=== PATIENT | female | born 1995 | race Caucasian/White ===

== ENCOUNTER 2019-06-06 10:47 | Inpatient (IN) | payer MEDICAID ==
[2019-06-06] VITALS (9 sets, daily range): BP systolic 105–134; BP diastolic 69–79
[~2019-06-06] VITALS: Ht 154.9 cm; Wt 69.4 kg
--- NOTE | 2019-06-06 10:42 | NUR ---
YURIY CARRIZALES presented to unit from Home, accompanied by Signficant Other, with c/o LEAKING. YURIY CARRIZALES weighed, gowned, voided, and to bed. EFHM and TOCO applied, VS taken. YURIY CARRIZALES oriented to bed controls, call light, TV, heat, and A/C controls.
--- NOTE | 2019-06-06 10:50 | NUR ---
Nitrazine inconclusive. Fluid visible on the perineum. SVE 3/50%.
--- NOTE | 2019-06-06 10:55 | NUR ---
Dr. العلي updated on patient's status. New orders received.
[2019-06-06] MEDS ORDERED: LACTATED RINGERS 1,000 ML IV PRN (11:18)
[2019-06-06] MEDS ORDERED: CITRIC ACID/SOB CIT (BICITRA) 30 ML UDC PO ONE (11:30)
[2019-06-06] MEDS ORDERED: METOCLOPRAMIDE INJ 10 MG/2 ML (REGLAN) IV ONE (11:30)
[2019-06-06] MEDS ORDERED: CATHETER FLUSH 10 ML SYR IV PRN (11:30)
[2019-06-06] MEDS ORDERED: FAMOTIDINE 20MG/2ML IV (PEPCID) IV ONE (11:30)
[2019-06-06 11:36] LABS: BASOPHILS # (AUTO) 0.1 10^3/uL (0.0-0.1); BASOPHILS % (AUTO) 1 % (0-10); EOSINOPHILS % (AUTO) 0 % (0-10); HEMATOCRIT 30 % (35-52); HEMOGLOBIN 9.6 G/DL (11.5-16.0); LYMPHOCYTES # (AUTO) 1.9 X 10^3 (1.0-4.0); LYMPHOCYTES % (AUTO) 18 % (12-44); MEAN CORPUSCULAR HEMOGLOBIN 23 PG (25-34); MEAN CORPUSCULAR HGB CONC 32 G/DL (32-36); MEAN CORPUSCULAR VOLUME 73 FL (80-99); MEAN PLATELET VOLUME 10.6 FL (7.4-10.4); MONOCYTES % (AUTO) 9 % (0-12); NEUTROPHILS # (AUTO) 7.9 X 10^3 (1.8-7.8); NEUTROPHILS % (AUTO) 73 % (42-75); PLATELET COUNT 244 10^3/uL (130-400); RED CELL DISTRIBUTION WIDTH 14.1 % (10.0-14.5); WHITE BLOOD COUNT 10.9 10^3/uL (4.3-11.0)
[2019-06-06] MEDS ORDERED: ONDANSETRON 4 MG/2 ML (SDV) Z0FRAN ONE (11:50)
[2019-06-06] MEDS ORDERED: fentaNYL INJECTION 100 MCG/2 ML AMP ONE (11:50)
[2019-06-06] MEDS ORDERED: KETOROLAC 30 MG/ML VIAL ONE (11:50)
[2019-06-06] MEDS ORDERED: OXYTOCIN/NORMAL SALINE 1,000 ML IV ONE (11:51)
--- NOTE | 2019-06-06 11:55 | History & Physical-OB ---
OB - Chief Complaint & HPI Date/Time Date of Admission: Date of Admission: 06/06/2019 Date seen by a Provider: Jun 06, 2019 Time Seen by a Provider: 11:45 Chief Complaint/History OB-Reason for Admission/Chief: Rupture of Membranes Hx : 2 Hx Para: 1 Expected Date of Delivery: Jun 28, 2019 Gestational Age in Weeks: 36 Gestational Age in Days: 6 Indication for : malpresentation Admission Nurse Assessment Rev: Yes History of Labs O pos Antibody neg RI RPR NR HBsAg NR HIV NR GC pos chla(ANA ROSA neg - 12/17) GBS unknown Allergies and Home Medications Allergies Coded Allergies: No Known Drug Allergies (Unverified , 06/06/19) Patient Home Medication List Home Medication List Reviewed: Yes OB - History Hx of Present Care: Yes Ultrasounds: Normal mid trimester US Obstetrical Complications: None Medical Complications: None Other Concerns: complete breech presentation Patient Past Medical History n/a OB - Admission Exam Physical Exam HEENT: NCAT Heart: Rhythm Normal Lungs: Clear Abdomen: Gravid Extremities: Normal Reflexes: Normal Cervical Dilatation: 3cm Effacement: 75% Station: -1 Membranes: Ruptured Amniotic Fluid: Clear Heart Rate: 140's Accelerations: Accelerations Present Decelerations: No Decelerations Short Term Variability: Present Director Digital Marketing Variability: Average (6-25) Contractions on Admission: 6-10 Minutes Apart Intensity: Moderate Labs Laboratory Tests Test 06/06/19 11:26 Range/Units White Blood Count 10.9 4.3-11.0 10^3/uL Red Blood Count 4.12 L 4.35-5.85 10^6/uL Hemoglobin 9.6 L 11.5-16.0 G/DL Hematocrit 30 L 35-52 % Mean Corpuscular Volume 73 L 80-99 FL Mean Corpuscular Hemoglobin 23 L 25-34 PG Mean Corpuscular Hemoglobin Concent 32 32-36 G/DL Red Cell Distribution Width 14.1 10.0-14.5 % Platelet Count 244 130-400 10^3/uL Mean Platelet Volume 10.6 H 7.4-10.4 FL Neutrophils (%) (Auto) 73 42-75 % Lymphocytes (%) (Auto) 18 12-44 % Monocytes (%) (Auto) 9 0-12 % Eosinophils (%) (Auto) 0 0-10 % Basophils (%) (Auto) 1 0-10 % Neutrophils # (Auto) 7.9 H 1.8-7.8 X 10^3 Lymphocytes # (Auto) 1.9 1.0-4.0 X 10^3 Monocytes # (Auto) 1.0 0.0-1.0 X 10^3 Eosinophils # (Auto) 0.0 0.0-0.3 10^3/uL Basophils # (Auto) 0.1 0.0-0.1 10^3/uL OB - Assessment/Plan/Diagnosis Assessment Assessment: section Admission Dx 23 yo @ 36.6 Premature ROM Complete breech presentation GBS unknown Admission Status: Inpatient Order (span 2 midnights) Reason for Inpatient Admission: SROM at 36 weeks Breech presentation Primary Plan Plan: Section RAFAEL OSPINA DO Jun 06, 2019 11:55
[2019-06-06] MEDS ORDERED: ceFAZolin 2 GM/50 ML NS 50 ML IV ONE (12:00)
[2019-06-06] MEDS ORDERED: OXYTOCIN/NORMAL SALINE 500 ML IV SCH (12:04)
--- NOTE | 2019-06-06 12:08 | Discharge Inst-Women's Service ---
Discharge Inst-Women's Serv Depart Medication/Instructions New, Converted or Re-Newed RX: RX on Chart Final Diagnosis POD 2 PLTCS Problems Reviewed?: Yes Consults/Follow Up Additional Follow Up: Yes Orders/Referrals Dr. العلي in 7-[address] Fernández in 6 weeks Activity Activity: Activity as Tolerated Driving Instructions: No Driving for 1 Week NO SMOKING: NO SMOKING Nothing Inside Vagina: No Douching, No [place], No Tampons Diet Discharge Diet: No Restrictions Symptoms to Report to : Bleeding Excessive, Pain Increased, Fever Over 101 Degrees F, Vaginal Bleeding Increase, Questions/Concerns For Any Problems or Questions: Contact Your Physician Skin/Wound Care Infection Signs and Symptoms: Increased Redness, Foul Odor of Wound, Increased Drainage, Skin Itchy or Has a Rash, Increased Swelling, Temperature Above 101 F Operative Area Clean and Dry: Keep Incision Clean/Dry Stitches/[place]/Dermabond: Dermabond, Care of Stitches Bathing Instructions: RAFAEL Rasmussen DO Jun 06, 2019 12:07
[2019-06-06] MEDS ORDERED: IBUP-844 PO (12:09)
[2019-06-06] MEDS ORDERED: DOCU100C37 PO (12:09)
[2019-06-06] MEDS ORDERED: ACHD5005 PO (12:09)
[2019-06-06] MEDS ORDERED: MEASLES,MUMPS,RUBELLA 1 EA INJ SC SCH (12:15)
[2019-06-06] MEDS ORDERED: TETANUS,DIPTH,PERTUSS P/F (BOOSTRIX) 0.5 ML VIAL IM SCH (12:15)
[2019-06-06] MEDS ORDERED: ONDANSETRON 4 MG/2 ML (SDV) Z0FRAN IVP PRN (12:15)
[2019-06-06] MEDS ORDERED: BISACODYL 10 MG SUPP (DULCOLAX) PR PRN (12:15)
[2019-06-06] MEDS ORDERED: PHENYLEPHRINE 100 MCG/ML 10 ML (ANESTHESIA) SYR ONE (12:38)
[2019-06-06] MEDS ORDERED: BUPIVACAINE 0.25% 30 ML (SENSORCAINE) VIAL ONE (12:39)
[2019-06-06] MEDS: KETOROLAC 30 MG/ML VIAL IV SCH ×2 (12:50→18:35)
[2019-06-06] MEDS ORDERED: CATHETER FLUSH 10 ML SYR IV SCH (14:00)
--- NOTE | 2019-06-06 14:00 | NUR ---
Report from Roula Chapa RN. Care of patient assumed. Addendum: 06/06/19 at 2050 by JEANETH SAMUELS RN Fundus firm U/2 with small rubra lochia noted. No clots. Pericare completed and clean pads placed.
--- NOTE | 2019-06-06 14:06 | OPERATIVE REPORT ---
DATE OF SERVICE: 06/06/2019 PREOPERATIVE DIAGNOSES: 1. A 23-year-old G2, P1 at 36 weeks and 6 days gestation. 2. Premature rupture of membranes. 3. Complete breech presentation. POSTOPERATIVE DIAGNOSES: 1. A 23-year-old G2, P1 at 36 weeks and 6 days gestation. 2. Premature rupture of membranes. 3. Complete breech presentation. PROCEDURE: Primary low transverse section. SURGEON: Ramiro Ospina DO ANESTHESIA: Spinal. ESTIMATED BLOOD LOSS: 400 mL. URINE OUTPUT: 150 mL of clear at the end of the procedure. FLUIDS: 1000 mL of lactated Ringer solution. FINDINGS: A live female infant weighing 6 pounds 13 ounces, Apgars of 7 and 8. Grossly normal appearing uterus, bilateral fallopian tubes and ovaries. SPECIMEN SENT: Placenta. INDICATION FOR PROCEDURE: This 23-year-old female was a patient, who had previously been seen in my office for the finding of malpresentation approximately 34 weeks, but here in the office, I confirmed that she was in a complete breech presentation. I discussed with the patient the possibility of external cephalic version versus primary . The patient did not want to discuss external cephalic version and wished to plan for primary as position did not change. Risks of the procedure was reviewed with the patient in the office including risk of bleeding, infection, damage to surrounding structures including, but not limited to bowel, bladder, ureter, kidneys, possible postoperative complications, possible need for blood transfusion, risk from anesthesia and even . After everything was discussed with the patient in detail, she was scheduled on the , which would have been 39 weeks; however, she presented today with spontaneous rupture of membranes at 36 and 6 and we discussed today due to persistent malpresentation. Risks again were briefly reviewed and consent was obtained and the patient was taken to the operating room. OPERATIVE REPORT IN DETAIL: Once in the operating room, spinal anesthesia was found to be adequate. She was placed in the supine position with a leftward tilt, prepped and draped in the normal sterile fashion. A timeout was performed and anesthesia was tested. I then performed a Pfannenstiel skin incision with a knife and carried down to underlying fascia using Bovie cautery. Fascial incision was extended laterally using Bovie cautery. The superior aspect of the fascial incision was then grasped with Maxwell clamps, tented upward and dissected off the underlying rectus muscles. The inferior aspect of the fascial incision was then grasped with Maxwell clamps, tented upward and dissected off the underlying rectus muscles. Rectus muscle was then dissected down the midline using blunt traction and Husain scissors, which exposed the peritoneum, which I entered bluntly and extended using blunt traction. I then placed an Sebastien ring retractor into the peritoneal incision, which offers excellent lateral sidewall retraction. I proceeded with making a low transverse incision through the vesicouterine peritoneum and bluntly dissecting this off the lower uterine segment, creating a bladder flap. I proceeded with my myotomy until membranes are encountered at which point I extended the uterine incision laterally and superiorly using bandage scissors. Amniotomy is performed during the process of doing this. The is still found in the complete breech presentation. The buttocks were elevated up to the incision. With gentle fundal pressure, the buttocks were delivered through the incision including the legs up to the upper torso at which point, I delivered the arms by sweeping them across the body and elevated the infant's body and delivered the head using gentle flexion through the incision. The nares and oropharynx were then bulb suctioned. The infant was brought out to the operative field where the cord was doubly clamped and cut and infant was handed off to waiting rn home care in attendance. Cord blood was collected. Three-vessel cord with intact placenta was delivered spontaneously thereafter. IV Pitocin was initiated to facilitate uterine contraction. Uterine fundus became firm with bimanual massage. Uterus was exteriorized and cleared of all endometrial clots and debris. I then proceeded with closing the uterine incision using 0 Vicryl suture in running locked fashion. A second layer of imbricating 0 Monocryl was placed. Excellent hemostasis was noted after doing this. I then placed the uterus back within the pelvis and copiously irrigated the pelvis using normal saline. There was no active bleeding noted from any of my dissection planes. I placed the Interceed antiadhesive over my low transverse incision and proceeded with closing the peritoneum using 3-0 Vicryl suture in running fashion. The rectus muscle was reapproximated using 3-0 Vicryl suture in interrupted fashion. The fascia was reapproximated using 0 Vicryl suture in running fashion. The subcutaneous tissue was reapproximated using 3-0 plain in an interrupted subcutaneous stitch and the skin was reapproximated using 4-0 Monocryl in a running subcuticular. Dermabond was applied to incision and sterile dressing was adhesed with white tape. The patient tolerated the procedure well and sent to recovery area in stable condition. Lap and sponge counts were correct at the end of the procedure. Instrument count was correct as well. Two grams of Ancef were given preoperatively for infection prophylaxis. Job ID: [id number] DocumentID: [id number] Dictated Date: 06/06/2019 12:56:51 Daytime Babysitter Date: 06/06/2019 14:06:05 Dictated By: RAMIRO OSPINA DO
[2019-06-06] MEDS: HYDROcodone/APAP 5 MG/325 MG (LORTAB) TAB PO PRN ×2 (15:33→21:05)
[2019-06-06] MEDS ORDERED: IBUPROFEN 600 MG (MOTRIN) TAB PO SCH (18:00)
--- NOTE | 2019-06-06 18:15 | NUR ---
Patient assisted up to restroom. + void noted. Pericare completed and clean pad and panties applied. Patient ambulated back to room and requested to sit in chair.
--- NOTE | 2019-06-06 18:35 | NUR ---
IV re-taped. Scheduled Toradol IV given. Patient denies any current needs or concerns at this time.
--- NOTE | 2019-06-06 19:30 | NUR ---
Report to Kacie Young RN.
--- NOTE | 2019-06-06 19:45 | NUR ---
Pt sitting up in chair, pt requesting to go back to bed. pt assisted to bed. call light within reach. assessment completed. pt denies any needs at this time.
[2019-06-06] MEDS: DOCUSATE SODIUM 100 MG (COLACE) CAP PO SCH (21:04)
--- NOTE | 2019-06-07 | NUR ---
Pt assisted to the bathroom. positive void. pt's abdominal dsg not holding with tape. drsg removed. incision c/d. dermabond intact
[2019-06-07 00:11] VITALS: BP 109/69
[2019-06-07] MEDS: KETOROLAC 30 MG/ML VIAL IV SCH ×2 (00:11→05:59)
[2019-06-07] MEDS: HYDROcodone/APAP 5 MG/325 MG (LORTAB) TAB PO PRN ×4 (03:28→20:45)
[2019-06-07 03:52] VITALS: BP 126/73
[2019-06-07 05:32] LABS: BASOPHILS % (AUTO) 0 % (0-10); EOSINOPHILS # (AUTO) 0.1 10^3/uL (0.0-0.3); EOSINOPHILS % (AUTO) 1 % (0-10); HEMATOCRIT 28 % (35-52); LYMPHOCYTES # (AUTO) 2.4 X 10^3 (1.0-4.0); LYMPHOCYTES % (AUTO) 23 % (12-44); MEAN CORPUSCULAR HEMOGLOBIN 24 PG (25-34); MEAN CORPUSCULAR HGB CONC 32 G/DL (32-36); MEAN CORPUSCULAR VOLUME 75 FL (80-99); MEAN PLATELET VOLUME 10.6 FL (7.4-10.4); MONOCYTES % (AUTO) 9 % (0-12); NEUTROPHILS # (AUTO) 6.8 X 10^3 (1.8-7.8); NEUTROPHILS % (AUTO) 66 % (42-75); PLATELET COUNT 199 10^3/uL (130-400); RED CELL DISTRIBUTION WIDTH 14.1 % (10.0-14.5); WHITE BLOOD COUNT 10.3 10^3/uL (4.3-11.0)
--- NOTE | 2019-06-07 08:09 | Postpartum Progress Note ---
Note Note Day # 1 Subjective: Patient is without complaints. Ambulating, voiding. Tolerating a regular diet without nausea or vomiting. Normal lochia. Pain is well controlled with oral pain medications. Objective: Physical Exam: General - Alert and oriented, no apparent distress Abdomen - Soft, appropriately tender to palpation, non-distended, fundus firm at umbilicus Extremities - no edema, negative Raymundo's bilaterally Incision- c/d/i Assessment: POD 1 PLTCS Acute blood loss anemia superimposed on anemia of Plan: Routine care. Encourage breast feeding. Encourage ambulation. Ferrous sulfate supplementation. Plan for discharge tomorrow Vitals - Labs Vital Signs - I&O Vital Signs Date Time Temp Pulse Resp B/P (MAP) Pulse Ox O2 Delivery O2 Flow Rate FiO2 06/07/19 03:52 97.1 68 18 126/73 (90) Room Air 06/07/19 00:11 98.2 82 18 109/69 (82) Room Air 06/06/19 19:52 98.7 66 18 124/74 (91) Room Air 06/06/19 18:15 Room Air 06/06/19 14:05 97.1 70 16 114/79 (91) 100 Room Air 06/06/19 13:50 97.7 18 99 Room Air 06/06/19 13:47 Room Air 06/06/19 13:40 18 98 Room Air 06/06/19 13:40 Room Air 06/06/19 13:32 Room Air 06/06/19 13:30 16 99 Room Air 06/06/19 13:20 18 99 Room Air 06/06/19 13:15 Room Air 06/06/19 13:10 15 99 OxyMask 06/06/19 12:59 98.4 24 100 Room Air 06/06/19 12:59 Room Air 06/06/19 10:45 97.9 96 16 134/75 (94) Room Air I & O 06/07/19 07:00 Intake Total 1450 ml Output Total 1325 ml Balance 125 ml Labs Laboratory Tests 06/06/19 11:26: White Blood Count 10.9, Red Blood Count 4.12L, Hemoglobin 9.6L, Hematocrit 30L, Mean Corpuscular Volume 73L, Mean Corpuscular Hemoglobin 23L, Mean Corpuscular Hemoglobin Concent 32, Red Cell Distribution Width 14.1, Platelet Count 244, Mean Platelet Volume 10.6H, Neutrophils (%) (Auto) 73, Lymphocytes (%) (Auto) 18, Monocytes (%) (Auto) 9, Eosinophils (%) (Auto) 0, Basophils (%) (Auto) 1, Neutrophils # (Auto) 7.9H, Lymphocytes # (Auto) 1.9, Monocytes # (Auto) 1.0, Eosinophils # (Auto) 0.0, Basophils # (Auto) 0.1 06/07/19 05:20: White Blood Count 10.3, Red Blood Count 3.78L, Hemoglobin 9.0L, Hematocrit 28L, Mean Corpuscular Volume 75L, Mean Corpuscular Hemoglobin 24L, Mean Corpuscular Hemoglobin Concent 32, Red Cell Distribution Width 14.1, Platelet Count 199, Mean Platelet Volume 10.6H, Neutrophils (%) (Auto) 66, Lymphocytes (%) (Auto) 23, Monocytes (%) (Auto) 9, Eosinophils (%) (Auto) 1, Basophils (%) (Auto) 0, Neutrophils # (Auto) 6.8, Lymphocytes # (Auto) 2.4, Monocytes # (Auto) 1.0, Eosinophils # (Auto) 0.1, Basophils # (Auto) 0.0 RAFAEL OSPINA DO Jun 07, 2019 08:09
[2019-06-07 08:30] VITALS: BP 128/76
--- NOTE | 2019-06-07 08:30 | NUR ---
A.M. ASSESSMENT COMPLETED. VSS. . VOIDING WITHOUT PROBLEMS. VAG FLOW LT RUBRA.
[2019-06-07] MEDS: DOCUSATE SODIUM 100 MG (COLACE) CAP PO SCH ×2 (09:03→20:44)
--- NOTE | 2019-06-07 09:04 | NUR ---
LORTAB 2 TABS P.O. FOR C/O ABD PAIN. C/O NOT BEING ABLE TO PASS GAS. ACTIVE BOWEL SOUNDS NOTED. ENCOURAGED AMBULATION IN HALLWAY TODAY.
--- NOTE | 2019-06-07 09:20 | Anesthesia-Regional Post-Op ---
Regional Patient Condition Mental Status: Alert, Oriented x3 Circulation: Same as Pre-Op Headache: Absent Sensation: Full Recovery Motor Block: Absent Post Op Complications Complications None Follow Up Care/Instructions Patient Instructions None needed. Anesthesia/Patient Condition Patient is doing well, no complaints, stable vital signs, no apparent adverse anesthesia problems. No complications reported per nursing. MICHAEL JULIO CRNA Jun 07, 2019 09:20
[2019-06-07] MEDS: SIMETHICONE 80 MG (MYLICON) CHEW PO PRN ×2 (09:22→14:54)
--- NOTE | 2019-06-07 09:22 | NUR ---
SIMETHICONE GIVEN. FOR C/O GAS.
--- NOTE | 2019-06-07 11:00 | NUR ---
SHOWERED WITHOUT PROBLEMS. CONTINUES TO CARE FOR IN ROOM.
[2019-06-07 12:15] VITALS: BP 119/73
[2019-06-07] MEDS: IBUPROFEN 600 MG (MOTRIN) TAB PO SCH ×2 (12:29→18:01)
--- NOTE | 2019-06-07 14:53 | NUR ---
LORTAB 5/325 2 P.O. FOR C/O INCISIONAL BURNING.
--- NOTE | 2019-06-07 15:00 | NUR ---
VOIDING WITHOUT PROBLEMS AND +FLATUS. STATES FEELING BETTER. CONTINUES TO CARE FOR IN ROOM.
--- NOTE | 2019-06-07 17:00 | NUR ---
SLEEPING QUIETLY AT THIS TIME.
[2019-06-07 18:00] VITALS: BP 112/60
--- NOTE | 2019-06-07 18:00 | NUR ---
ROUTINE MOTRIN GIVEN. VOIDING AND PASSING FLATUS. DENIES ANY PAIN AT THIS TIME. CONTINUES TO CARE FOR INFANT IN ROOM. NURSERY IN TO ASSIST WITH FEEDING INFANT. BABY HAS BEEN MUCOUSY AND DIFFICULT TO AWAKEN AT TIMES TO BREASTFEED.
[2019-06-08] VITALS: BP 119/63
[2019-06-08] MEDS: IBUPROFEN 600 MG (MOTRIN) TAB PO SCH ×3 (00:12→11:28)
[2019-06-08] MEDS: HYDROcodone/APAP 5 MG/325 MG (LORTAB) TAB PO PRN (01:21)
[2019-06-08 05:17] VITALS: BP 132/88
[2019-06-08 08:09] VITALS: BP 122/75
--- NOTE | 2019-06-08 08:19 | Postpartum Progress Note ---
Note Note Day # 2 Subjective: Patient is without complaints. Ambulating, voiding. Tolerating a regular diet without nausea or vomiting. Normal lochia. Pain is well controlled with oral pain medications. Objective: Physical Exam: General - Alert and oriented, no apparent distress Abdomen - Soft, appropriately tender to palpation, non-distended, fundus firm at umbilicus Extremities - no edema, negative Raymundo's bilaterally Incision- c/d/i Assessment: POD 2 PLTCS Acute blood loss anemia Plan: Routine care. Encourage breast feeding. Encourage ambulation. Ferrous sulfate supplementation. Plan for discharge today Vitals - Labs Vital Signs - I&O Vital Signs Date Time Temp Pulse Resp B/P (MAP) Pulse Ox O2 Delivery O2 Flow Rate FiO2 06/08/19 08:09 97.7 95 16 122/75 (91) 98 Room Air 06/08/19 05:17 98.1 84 18 132/88 (103) Room Air 06/08/19 00:00 98.0 74 16 119/63 (81) 97 Room Air 06/07/19 18:00 97.7 68 18 112/60 (77) 99 Room Air 06/07/19 12:15 98.2 87 18 119/73 (88) 99 Room Air 06/07/19 08:30 98.2 82 18 128/76 (93) 97 Room Air I & O 06/08/19 07:00 Intake Total 1840 ml Output Total 2525 ml Balance -685 ml RAFAEL OSPINA DO Jun 08, 2019 08:19
[2019-06-08] MEDS: DOCUSATE SODIUM 100 MG (COLACE) CAP PO SCH (09:06)
--- NOTE | 2019-06-08 09:06 | NUR ---
Initial shift assessment completed, see interventions for further. abd incision ARACELI with Dermabond intact. incision edges well approximated, no sx's of infection noted.
--- NOTE | 2019-06-08 10:40 | NUR ---
Rx's given to pt's .
--- NOTE | 2019-06-08 12:11 | NUR ---
dismissal instructions given, verbalizes understanding. reviewed Rx's and follow up appointments. signature page signed, placed in chart. pt dismissed to rooming in status until dismissed from hospital.
== END 2019-06-08 12:11 | disposition home or self-care (01) | DRG 787 ==
LOC: WSo 10:47 → LDRP 10:47 → WSo 11:00 → LDRP 11:00
PROVIDERS: ADMIT Obstetrics & Gynecology; ATTEND Obstetrics & Gynecology
PROC: 10D00Z1 Extraction of Products of Conception, Low, Open Approach (ICD-10-PCS; principal; 2019-06-06 12:02)
DX: O42.913 Preterm premature rupture of membranes, unspecified as to length of time between rupture and onset of labor, third trimester (principal); O64.1XX0 Obstructed labor due to breech presentation, not applicable or unspecified; O99.03 Anemia complicating the puerperium; D62 Acute posthemorrhagic anemia; Z3A.36 36 weeks gestation of pregnancy; Z37.0 Single live birth
CPT/HCPCS: 36415; 85025; 86850; 86900; 86901; 88307; 94664; 99212

== ENCOUNTER → 2020-05-23 | Outpatient (CLI) | payer SELFPAY ==
[~2020-05-23] MED LIST: ACHD5005 PO; DOCU100C37 PO; IBUP-844 PO
== END ==
LOC: LAB FS 11:59
PROVIDERS: ATTEND Family Medicine
DX: Z34.80 Encounter for supervision of other normal pregnancy, unspecified trimester (principal)

== ENCOUNTER → 2020-05-23 | Outpatient (CLI) | payer MEDICAID ==
[2020-05-24 12:42] LABS: HEMOGLOBIN 12.9 G/DL (11.5-16.0); MEAN CORPUSCULAR HEMOGLOBIN 26 PG (25-34); WHITE BLOOD COUNT 9.8 10^3/uL (4.3-11.0)
[2020-05-24 12:43] LABS: BASOPHILS # (AUTO) 0.1 10^3/uL (0.0-0.1); BASOPHILS % (AUTO) 1 % (0-10); EOSINOPHILS % (AUTO) 0 % (0-10); HEMATOCRIT 39 % (35-52); LYMPHOCYTES # (AUTO) 2.1 X 10^3 (1.0-4.0); LYMPHOCYTES % (AUTO) 22 % (12-44); MEAN CORPUSCULAR HGB CONC 33 G/DL (32-36); MEAN CORPUSCULAR VOLUME 78 FL (80-99); MEAN PLATELET VOLUME 10.7 FL (7.4-10.4); MONOCYTES # (AUTO) 0.5 X 10^3 (0.0-1.0); MONOCYTES % (AUTO) 5 % (0-12); NEUTROPHILS % (AUTO) 72 % (42-75); PLATELET COUNT 255 10^3/uL (130-400)
== END ==
LOC: LABNPT 14:45
PROVIDERS: ATTEND Family Medicine
DX: Z34.80 Encounter for supervision of other normal pregnancy, unspecified trimester (principal); Z3A.00 Weeks of gestation of pregnancy not specified
CPT/HCPCS: 80055; 86703; 87088

== ENCOUNTER → 2020-07-19 | Outpatient (CLI) | payer MEDICAID | LOC: LAB FS 11:29 | PROVIDERS: ATTEND Family Medicine | DX: Z34.82 Encounter for supervision of other normal pregnancy, second trimester (principal) | CPT/HCPCS: 36415; 82105; 84702; 86336 ==

== ENCOUNTER → 2020-11-03 | Outpatient (CLI) | payer MEDICAID | LOC: LAB FS 07:40 | PROVIDERS: ATTEND Obstetrics & Gynecology | DX: O99.810 Abnormal glucose complicating pregnancy (principal); Z3A.00 Weeks of gestation of pregnancy not specified | CPT/HCPCS: 36415; 82951; 82952 ==

== ENCOUNTER 2020-12-14 00:53 | Outpatient (CLI) | payer MEDICAID ==
[~2020-12-14] VITALS: Ht 154.9 cm; Wt 81.7 kg
[2020-12-14 01:03] VITALS: BP 132/69
[2020-12-14] MEDS ORDERED: PNV1TABL9 PO (01:04)
[2020-12-14 01:12] VITALS: BP 132/69
[2020-12-14 01:20] LABS: BILIRUBIN,URINE NEGATIVE (NEGATIVE); CLARITY,URINE CLEAR; COLOR,URINE YELLOW; GLUCOSE, URINE (UA) NEGATIVE (NEGATIVE); KETONES,URINE NEGATIVE (NEGATIVE); LEUKOCYTE ESTERASE ,URINE NEGATIVE (NEGATIVE); NITRITE,URINE NEGATIVE (NEGATIVE); PH,URINE 6.5 (5-9); PROTEIN,URINE NEGATIVE (NEGATIVE)
[2020-12-14 01:27] LABS: BACTERIA,URINE NEGATIVE /HPF; WBC,URINE RARE /HPF
[2020-12-14 02:21] VITALS: BP 132/69
--- NOTE | 2020-12-17 08:15 | Physician Query-Final Dx ---
AVEL CARRIZALES 12/17/20 0815: Clinic Account Progress/Dx Physician Query: Please give diagnosis Please include # weeks gestation Date of Service Dec 14, 2020 at 00:53 RAFAEL OSPINA DO 12/17/20 0906: Clinic Account Progress/Dx DIAGNOSIS: Diagnosis 38 week IUP Irregular contractions Vaginal discharge AVEL CARRIZALES Dec 17, 2020 08:15 RAFAEL OSPINA DO Dec 17, 2020 09:06
== END 2020-12-14 02:16 | disposition home or self-care (01) ==
LOC: WSo 00:53 → LDRP 00:56 → WSo 02:16
PROVIDERS: ATTEND Obstetrics & Gynecology
DX: O42.013 Preterm premature rupture of membranes, onset of labor within 24 hours of rupture, third trimester (principal); Z3A.38 38 weeks gestation of pregnancy
CPT/HCPCS: 81000; G0463; 99214

== ENCOUNTER 2020-12-24 06:09 | Inpatient (IN) | payer MEDICAID ==
[~2020-12-24] VITALS: Ht 154.9 cm; Wt 82.3 kg
[2020-12-24] VITALS (26 sets, daily range): BP systolic 77–148; BP diastolic 53–100
[~2020-12-24 06:09] MED LIST changes: +PNV1TABL9 PO
[2020-12-24] MEDS ORDERED: MINERAL OIL CONCENTRATE 99.9% 15 ML UDC TOP PRN (06:30)
[2020-12-24] MEDS ORDERED: D5 LR IV SOLUTION 1,000 ML IV ONE (06:33)
[2020-12-24] MEDS: D5 LR IV SOLUTION 1,000 ML IV SCH (06:43)
[2020-12-24 06:49] LABS: BASOPHILS # (AUTO) 0.1 10^3/uL (0.0-0.1); BASOPHILS % (AUTO) 1 % (0-10); EOSINOPHILS # (AUTO) 0.1 10^3/uL (0.0-0.3); EOSINOPHILS % (AUTO) 1 % (0-10); HEMATOCRIT 38 % (35-52); HEMOGLOBIN 12.4 g/dL (11.5-16.0); LYMPHOCYTES # (AUTO) 2.5 10^3/uL (1.0-4.0); LYMPHOCYTES % (AUTO) 28 % (12-44); MEAN CORPUSCULAR HEMOGLOBIN 26 pg (25-34); MEAN CORPUSCULAR HGB CONC 33 g/dL (32-36); MEAN CORPUSCULAR VOLUME 78 fL (80-99); MEAN PLATELET VOLUME 11.6 fL (9.0-12.2); MONOCYTES # (AUTO) 0.8 10^3/uL (0.0-1.0); MONOCYTES % (AUTO) 9 % (0-12); NEUTROPHILS # (AUTO) 5.6 10^3/uL (1.8-7.8); NEUTROPHILS % (AUTO) 61 % (42-75); PLATELET COUNT 212 10^3/uL (130-400); WHITE BLOOD COUNT 9.1 10^3/uL (4.3-11.0)
[2020-12-24] MEDS: LACTATED RINGERS 1,000 ML IV SCH ×2 (07:17→08:52)
--- NOTE | 2020-12-24 07:33 | History & Physical-OB ---
OB - Chief Complaint & HPI Date/Time Date of Admission: Date of Admission: Dec 24, 2020 at 06:09 Date seen by a Provider: Dec 24, 2020 Time Seen by a Provider: 07:30 Chief Complaint/History OB-Reason for Admission/Chief: Induction of Labor Hx : 3 Hx Para: 2 Expected Date of Delivery: Dec 29, 2020 Gestational Age in Weeks: 39 Gestational Age in Days: 3 Admission Nurse Assessment Rev: Yes History of Labs O pos Antibody nbe RI RPR NR HIV NR HBsAg NR GC neg GBS neg Allergies and Home Medications Allergies Coded Allergies: No Known Drug Allergies (Unverified , 12/14/20) Home Medications Pnv Cmb#21/Iron/Folic Acid 1 Each Tablet, 1 EACH PO DAILY, (Reported) Patient Home Medication List Home Medication List Reviewed: Yes OB - History Hx of Present Care: Yes Ultrasounds: Normal mid trimester US Obstetrical Complications: Other (2 vessel cord, TOLAC) Medical Complications: None Patient Past Medical History n/a Immunizations Date of Influenza Vaccine: Jul 16, 2020 OB - Admission Exam Physical Exam HEENT: NCAT Heart: Rhythm Normal Lungs: Clear Abdomen: Gravid Extremities: Normal Reflexes: Normal Cervical Dilatation: 4cm Effacement: 75% Station: -1 Membranes: Intact Heart Rate: 130's Accelerations: Accelerations Present Decelerations: No Decelerations Short Term Variability: Present Kick Plate Installer Variability: Average (6-25) Contractions on Admission: 6-10 Minutes Apart Intensity: Mild Labs Laboratory Tests Test 12/24/20 06:30 Range/Units White Blood Count 9.1 4.3-11.0 10^3/uL Red Blood Count 4.84 3.80-5.11 10^6/uL Hemoglobin 12.4 11.5-16.0 g/dL Hematocrit 38 35-52 % Mean Corpuscular Volume 78 L 80-99 fL Mean Corpuscular Hemoglobin 26 25-34 pg Mean Corpuscular Hemoglobin Concent 33 32-36 g/dL Red Cell Distribution Width 17.2 H 10.0-14.5 % Platelet Count 212 130-400 10^3/uL Mean Platelet Volume 11.6 9.0-12.2 fL Immature Granulocyte % (Auto) 0 % Neutrophils (%) (Auto) 61 42-75 % Lymphocytes (%) (Auto) 28 12-44 % Monocytes (%) (Auto) 9 0-12 % Eosinophils (%) (Auto) 1 0-10 % Basophils (%) (Auto) 1 0-10 % Neutrophils # (Auto) 5.6 1.8-7.8 10^3/uL Lymphocytes # (Auto) 2.5 1.0-4.0 10^3/uL Monocytes # (Auto) 0.8 0.0-1.0 10^3/uL Eosinophils # (Auto) 0.1 0.0-0.3 10^3/uL Basophils # (Auto) 0.1 0.0-0.1 10^3/uL Immature Granulocyte # (Auto) 0.0 0.0-0.1 10^3/uL OB - Assessment/Plan/Diagnosis Assessment Assessment: induction of labor Admission Dx 25 yo @ 39.3 Induction of labor 2 vessel cord TOLAC GBS neg Admission Status: Inpatient Order (span 2 midnights) Reason for Inpatient Admission: Induction of labor at term. Plan Plan: Induction Induction Method: RAFAEL LOPEZ DO Dec 24, 2020 07:33
[2020-12-24] MEDS ORDERED: LACTATED RINGERS 1,000 ML IV ONE (07:50)
[2020-12-24] MEDS ORDERED: fentaNYL 2 mcg/ml BUPIVA 0.125 100 ML ONE (07:50)
[2020-12-24] MEDS ORDERED: BUPIVACAINE 0.25% 30 ML (SENSORCAINE) VIAL ONE (08:09)
[2020-12-24] MEDS ORDERED: LIDOCAINE PF 2% 5 ML (XYLOCAINE) VIAL ONE ×2 (08:09→09:15)
[2020-12-24] MEDS ORDERED: fentaNYL INJ 100 MCG/2 ML AMP ONE (08:10)
[2020-12-24] MEDS ORDERED: ONDANSETRON 4 MG/2 ML (SDV) Z0FRAN IV PRN (08:15)
[2020-12-24] MEDS ORDERED: EPIDURAL (fentaNYL 2 MCG/ML BUPIVA 0.125%)100 ML BAG EPI PRN (08:15)
[2020-12-24] MEDS ORDERED: NALOXONE 0.4 MG/ML 1 ML (NARCAN) VIAL IV PRN (08:15)
[2020-12-24] MEDS ORDERED: diphenhydrAMINE 50 MG/ML INJ (BENADRYL) IV PRN (08:15)
[2020-12-24] MEDS: OXYTOCIN PRE-MIX DRIP 500 ML IV SCH ×4 (09:03→11:00)
[2020-12-24] MEDS ORDERED: ceFAZolin 2 GM IV Premixed 50 ML ONE (09:12)
[2020-12-24] MEDS ORDERED: CITRIC ACID/SOB CIT (BICITRA) 30 ML UDC ONE (09:12)
[2020-12-24] MEDS ORDERED: METOCLOPRAMIDE INJ 10 MG/2 ML (REGLAN) ONE (09:12)
[2020-12-24] MEDS ORDERED: FAMOTIDINE 20MG/2ML IV (PEPCID) ONE (09:12)
[2020-12-24] MEDS ORDERED: ONDANSETRON 4 MG/2 ML (SDV) Z0FRAN ONE (09:17)
[2020-12-24] MEDS ORDERED: OXYTOCIN PRE-MIX DRIP 1,000 ML IV ONE (09:17)
[2020-12-24] MEDS: KETOROLAC 30 MG/ML VIAL IV SCH ×3 (09:59→23:57)
[2020-12-24] MEDS ORDERED: KETOROLAC 30 MG/ML VIAL ONE (10:12)
[2020-12-24] MEDS ORDERED: BUPIVACAINE 0.5% 30 ML (SENSORCAINE) VIAL ONE (10:12)
[2020-12-24] MEDS ORDERED: ONDANSETRON 4 MG/2 ML (SDV) Z0FRAN IVP PRN (10:15)
[2020-12-24] MEDS ORDERED: TETANUS,DIPTH,PERTUSS P/F (BOOSTRIX) 0.5 ML VIAL IM SCH (10:15)
[2020-12-24] MEDS ORDERED: MEASLES,MUMPS,RUBELLA 1 EA INJ SC SCH (10:15)
[2020-12-24] MEDS: HYDROcodone/APAP 5 MG/325 MG (LORTAB) TAB PO PRN ×2 (13:07→20:15)
[2020-12-24] MEDS ORDERED: LACTATED RINGERS 1,000 ML IV PRN ×2 (13:15)
[2020-12-24] MEDS ORDERED: METOCLOPRAMIDE INJ 10 MG/2 ML (REGLAN) IV ONE (13:15)
[2020-12-24] MEDS ORDERED: CITRIC ACID/SOB CIT (BICITRA) 30 ML UDC PO ONE (13:15)
[2020-12-24] MEDS ORDERED: CATHETER FLUSH 10 ML SYR IV SCH (14:00)
[2020-12-24] MEDS: CATHETER FLUSH 10 ML SYR IV SCH ×2 (14:51→23:57)
--- NOTE | 2020-12-24 15:48 | OPERATIVE REPORT ---
DATE OF SERVICE: PREOPERATIVE DIAGNOSES: 1. A 25-year-old G3, P2 at 39 weeks and 3 days gestation. 2. distress with prolonged bradycardia. 3. Two-vessel cord. POSTOPERATIVE DIAGNOSES: 1. A 25-year-old G3, P2 at 39 weeks and 3 days gestation. 2. distress with prolonged bradycardia. 3. Two-vessel cord. 4. Nuchal cord. PROCEDURE: Emergency repeat low transverse section. SURGEON: Ramiro العلي DO ASSISTANT TRACK AND FIELD COACH: Brittaney Aranda DNP, was necessary for manipulation and retraction throughout the procedure. ANESTHESIA: Epidural, which was bolused. ESTIMATED BLOOD LOSS: 500 mL. URINE OUTPUT: 100 mL, clear at the end of procedure. FLUIDS: 500 mL lactated Ringer's solution. FINDINGS: A live female , weight pending. Apgars of 7 and 8. Grossly normal appearing uterus, bilateral fallopian tubes and ovaries. SPECIMEN SENT: Placenta. INDICATIONS FOR PROCEDURE: This 25-year-old female is a patient who had sought care in my office. She was desiring a trial of labor after ; prior was for my presentation. She was 4 cm dilated at admission. AROM was performed. The fetus initially tolerated this fine. She received an epidural shortly thereafter due to the back protocol. Shortly thereafter, she had a few late decelerations. She had a drop in her blood pressures. Ephedrine was given x1 dose per anesthesia and this brought her blood pressure back up; however, there was a prolonged deceleration and a change of baseline into a bradycardic range. Due to consistent and persistent bradycardia, I discussed with the patient proceeding with emergent delivery. She was agreeable to do this. Consent was obtained and the patient was taken to the operating room. OPERATIVE REPORT IN DETAIL: Once in the operating room, epidural analgesia had been bolused and found to be adequate. She was placed in supine position with leftward tilt, prepped and draped in normal sterile fashion. Timeout was performed and anesthesia was tested to make a Pfannenstiel skin incision to the previously existing scar using knife and carried down to the underlying fascia using Bovie cautery. The fascial incision extended using blunt traction. The rectus muscles were down the midline and extended using blunt traction. The peritoneum was entered bluntly and extended using blunt traction. Sebastien ring retractor was placed in the peritoneal incision, which offers excellent lateral sidewall retraction. I identified the uterine segment, which was found to be thinned out I made a low transverse incision to the vesicouterine peritoneum until I encountered the membranes and ruptured these through the incision. I then extended the uterine incision using blunt traction laterally. The was found in vertex presentation. With gentle fundal pressure, the 's head elevated through the incision where the nares and oropharynx were bulb suctioned. Anterior and posterior shoulders were delivered after nuchal cord reduced x1. was then brought to the operative field with cord doubly clamped and cut and was handed off to waiting nurses in attendance. Cord blood was collected, 3-vessel cord with intact placenta was delivered spontaneously thereafter. IV Pitocin was initiated to facilitate uterine contraction. Uterine fundus confirmed by manual massage. The uterus was then exteriorized and cleared of all endometrial clots and debris. I then proceeded with closing the uterine incision using 0 Vicryl suture in running locked fashion. Second layer of imbricating 0 Monocryl was placed. Excellent hemostasis was noted after doing so. I then placed the uterus back in the pelvis and copiously irrigated the pelvis using normal saline. Once again, there was no active bleeding noted from any of my dissection planes. I placed Interceed antiadhesive over my low transverse incision and then removed the Sebastien ring retractor. I then proceeded with closing the peritoneum using 3-0 Vicryl suture in a running fashion. The rectus muscle reapproximated using 3-0 Vicryl suture in interrupted fashion. The fascia was reapproximated using 0 Vicryl suture in a running fashion. Subcutaneous tissue was reapproximated using 3-0 plain interrupted subcutaneous stitch and skin reapproximated using 4-0 Monocryl running subcuticular. Dermabond was applied to incision and sterile dressing with adhesive white tape. The patient tolerated the procedure well and was taken to recovery area in stable condition. Lap and sponge counts were correct at the end of procedure. Instrument counts correct as well. Two grams of Ancef was given preoperatively for infection prophylaxis. Job ID: [id number] DocumentID: [id number] Dictated Date: 12/24/2020 10:12:05 [employer] Manager Date: 12/24/2020 15:48:12 Dictated By: DO MARK LUA
[2020-12-24] MEDS: DOCUSATE SODIUM 100 MG (COLACE) CAP PO SCH (20:15)
[2020-12-25] MEDS: D5 LR IV SOLUTION 1,000 ML IV SCH (03:33)
[2020-12-25 03:35] VITALS: BP 134/90
[2020-12-25] MEDS: HYDROcodone/APAP 5 MG/325 MG (LORTAB) TAB PO PRN ×3 (03:35→21:25)
[2020-12-25 06:01] LABS: BASOPHILS % (AUTO) 0 % (0-10); EOSINOPHILS % (AUTO) 0 % (0-10); HEMATOCRIT 27 % (35-52); HEMOGLOBIN 8.6 g/dL (11.5-16.0); LYMPHOCYTES # (AUTO) 3.2 10^3/uL (1.0-4.0); LYMPHOCYTES % (AUTO) 25 % (12-44); MEAN CORPUSCULAR HEMOGLOBIN 26 pg (25-34); MEAN CORPUSCULAR HGB CONC 32 g/dL (32-36); MEAN CORPUSCULAR VOLUME 80 fL (80-99); MEAN PLATELET VOLUME 11.7 fL (9.0-12.2); MONOCYTES # (AUTO) 1.2 10^3/uL (0.0-1.0); MONOCYTES % (AUTO) 9 % (0-12); NEUTROPHILS # (AUTO) 8.4 10^3/uL (1.8-7.8); NEUTROPHILS % (AUTO) 66 % (42-75); PLATELET COUNT 155 10^3/uL (130-400); WHITE BLOOD COUNT 12.8 10^3/uL (4.3-11.0)
[2020-12-25] MEDS: KETOROLAC 30 MG/ML VIAL IV SCH (06:07)
[2020-12-25] MEDS: CATHETER FLUSH 10 ML SYR IV SCH (06:07)
--- NOTE | 2020-12-25 07:35 | Postpartum Progress Note ---
Note Note Day # 1 Subjective: Patient is without complaints. Ambulating, voiding. Tolerating a regular diet without nausea or vomiting. Normal lochia. Pain is well controlled with oral pain medications. Objective: Physical Exam: General - Alert and oriented, no apparent distress Abdomen - Soft, appropriately tender to palpation, non-distended, fundus firm at umbilicus Extremities - no edema, negative Raymundo's bilaterally Incision- c/d/i Assessment: POD 1 RLTCS Acute blood loss anemia Plan: Routine care. Encourage breast feeding. Encourage ambulation. Ferrous sulfate supplementation. Plan for discharge tomorrow Vitals - Labs Vital Signs - I&O Vital Signs Date Time Temp Pulse Resp B/P (MAP) Pulse Ox O2 Delivery O2 Flow Rate FiO2 12/25/20 03:35 36.1 72 18 134/90 (105) 98 Room Air 12/24/20 23:57 36.3 62 18 112/58 (76) 97 Room Air 12/24/20 20:15 36.8 76 18 119/65 (83) 97 Room Air 12/24/20 16:46 36.5 69 18 113/61 (78) 96 Room Air 12/24/20 11:00 36.2 70 18 118/73 (88) 98 Room Air 12/24/20 10:50 36.4 18 114/74 (87) 98 Room Air 12/24/20 10:50 Room Air 12/24/20 10:40 18 116/71 (86) 98 Room Air 12/24/20 10:36 Room Air 12/24/20 10:30 18 114/100 (105) 98 Room Air 12/24/20 10:30 Room Air 12/24/20 10:20 18 106/71 (83) 99 Room Air 12/24/20 10:15 Room Air 12/24/20 10:13 18 116/64 (81) 98 Room Air 12/24/20 10:10 18 119/89 (99) 99 Room Air 12/24/20 10:03 36.2 18 110/71 (84) 97 Room Air 12/24/20 10:03 Room Air 12/24/20 09:24 68 18 145/75 (98) 99 Non Rebreather 15.00 12/24/20 09:18 Non Rebreather 15.00 12/24/20 09:15 91 18 144/84 (104) 98 Room Air 12/24/20 09:10 68 18 136/74 (94) 99 Room Air 12/24/20 09:05 73 18 140/69 (92) 98 Room Air 12/24/20 09:00 100 18 124/56 (78) 93 Room Air 12/24/20 08:54 75 18 148/84 (105) 100 Room Air 12/24/20 08:52 56 18 135/70 (91) 94 Room Air 12/24/20 08:50 63 18 77/53 (61) 97 Room Air 12/24/20 08:45 83 18 137/90 (106) 99 Room Air 12/24/20 08:40 105 18 122/80 (94) 98 Room Air 12/24/20 08:35 94 18 112/69 (83) 98 Room Air 12/24/20 08:30 91 18 126/84 (98) 99 Room Air 12/24/20 08:24 90 18 138/75 (96) 100 Room Air 12/24/20 08:00 81 18 119/68 (85) Room Air I & O 12/25/20 07:00 Intake Total 2550 ml Output Total 4000 ml Balance -1450 ml Labs Laboratory Tests 12/25/20 05:34: White Blood Count 12.8H, Red Blood Count 3.37L, Hemoglobin 8.6#L, Hematocrit 27L , Mean Corpuscular Volume 80, Mean Corpuscular Hemoglobin 26, Mean Corpuscular Hemoglobin Concent 32, Red Cell Distribution Width 17.3H, Platelet Count 155, Mean Platelet Volume 11.7, Immature Granulocyte % (Auto) 0, Neutrophils (%) (Auto) 66, Lymphocytes (%) (Auto) 25, Monocytes (%) (Auto) 9, Eosinophils (%) (Auto) 0, Basophils (%) (Auto) 0, Neutrophils # (Auto) 8.4H, Lymphocytes # (Auto) 3.2, Monocytes # (Auto) 1.2H, Eosinophils # (Auto) 0.0, Basophils # (Auto) 0.0, Immature Granulocyte # (Auto) 0.1 RAFAEL OSPINA 23, 2021 07:35
[2020-12-25] MEDS ORDERED: IBUP-844 PO (07:36)
[2020-12-25] MEDS ORDERED: DCS100C PO (07:36)
[2020-12-25] MEDS ORDERED: ACHD5005 PO (07:36)
--- NOTE | 2020-12-25 07:38 | Discharge Inst-Women's Service ---
Discharge Inst-Women's Serv Depart Medication/Instructions New, Converted or Re-Newed RX: RX on Chart Final Diagnosis POD 2 RLTCS Problems Reviewed?: Yes Consults/Follow Up Additional Follow Up: Yes Orders/Referrals Dr. العلي in 7-10 days and in 6 weeks Activity Activity: Activity as Tolerated Driving Instructions: No Driving for 1 Week NO SMOKING: NO SMOKING Nothing Inside Vagina: No Douching, No [place], No Tampons Diet Discharge Diet: No Restrictions Symptoms to Report to : Bleeding Excessive, Pain Increased, Fever Over 101 Degrees F, Vaginal Bleeding Increase, Questions/Concerns For Any Problems or Questions: Contact Your Physician Skin/Wound Care Infection Signs and Symptoms: Increased Redness, Foul Odor of Wound, Increased Drainage, Skin Itchy or Has a Rash, Increased Swelling, Temperature Above 101 F Operative Area Clean and Dry: Keep Incision Clean/Dry Stitches/Estela/Dermabond: Dermabond, Care of Stitches Bathing Instructions: RAFAEL Rasmussen DO Dec 25, 2020 07:38
--- NOTE | 2020-12-25 08:17 | Anesthesia-Regional Post-Op ---
Regional Patient Condition Mental Status: Alert, Oriented x3 Circulation: Same as Pre-Op Headache: Absent Sensation: Full Recovery Motor Block: Absent Post Op Complications Complications None Follow Up Care/Instructions Patient Instructions None needed. Anesthesia/Patient Condition Patient is doing well, no complaints, stable vital signs, no apparent adverse anesthesia problems. No complications reported per nursing. BILLY MAK CRNA Dec 25, 2020 08:17
[2020-12-25 09:00] VITALS: BP 120/77
[2020-12-25] MEDS: DOCUSATE SODIUM 100 MG (COLACE) CAP PO SCH ×2 (09:33→22:06)
[2020-12-25 12:00] VITALS: BP 121/67
[2020-12-25] MEDS: IBUPROFEN 600 MG (MOTRIN) TAB PO SCH ×3 (12:22→23:59)
[2020-12-25 16:00] VITALS: BP 114/65
[2020-12-26 00:05] VITALS: BP 120/75
[2020-12-26] MEDS: IBUPROFEN 600 MG (MOTRIN) TAB PO SCH (05:33)
[2020-12-26 05:41] VITALS: BP 115/68
--- NOTE | 2020-12-26 06:11 | Postpartum Progress Note ---
Note Note Day # 2 Subjective: Patient is without complaints. Ambulating, voiding. Tolerating a regular diet without nausea or vomiting. Normal lochia. Pain is well controlled with oral pain medications. Objective: Physical Exam: General - Alert and oriented, no apparent distress Abdomen - Soft, appropriately tender to palpation, non-distended, fundus firm at umbilicus Extremities - no edema, negative Raymundo's bilaterally Incision- c/d/i Assessment: POD 2 RLTCS Acute blood loss anemia Plan: Routine care. Encourage breast feeding. Encourage ambulation. Ferrous sulfate supplementation. Plan for discharge today Vitals - Labs Vital Signs - I&O Vital Signs Date Time Temp Pulse Resp B/P (MAP) Pulse Ox O2 Delivery O2 Flow Rate FiO2 12/26/20 05:41 36.4 88 18 115/68 (84) 97 Room Air 12/26/20 00:05 36.2 76 18 120/75 (90) 95 Room Air 12/25/20 16:00 36.5 86 18 114/65 (81) 99 Room Air 12/25/20 12:00 36.7 83 18 121/67 (85) 98 Room Air 12/25/20 09:00 36.6 76 18 120/77 (91) 98 Room Air RAFAEL OSPINA DO Dec 26, 2020 06:11
[2020-12-26] MEDS: DOCUSATE SODIUM 100 MG (COLACE) CAP PO SCH (08:56)
[2020-12-26 09:00] VITALS: BP 119/75
[2020-12-26 11:00] VITALS: BP 119/75
== END 2020-12-26 11:00 | disposition home or self-care (01) | DRG 787 ==
LOC: LDRP 06:09
PROVIDERS: ADMIT Obstetrics & Gynecology; ATTEND Obstetrics & Gynecology
PROC: 10D00Z1 Extraction of Products of Conception, Low, Open Approach (ICD-10-PCS; principal; 2020-12-24 09:27)
DX: O34.211 Maternal care for low transverse scar from previous cesarean delivery (principal); D62 Acute posthemorrhagic anemia; O36.8330 Maternal care for abnormalities of the fetal heart rate or rhythm, third trimester, not applicable or unspecified; Z3A.39 39 weeks gestation of pregnancy; Z37.0 Single live birth; O90.81 Anemia of the puerperium; O69.81X0 Labor and delivery complicated by cord around neck, without compression, not applicable or unspecified
CPT/HCPCS: 36415; 85025; 86850; 86900; 86901; 88305; 88307; 88360; 94664